=== PATIENT | female | born 1935 | race Caucasian/White ===

== ENCOUNTER 2018-12-16 12:18 | Emergency (ER) | payer BC ==
[2018-12-16] MEDS ORDERED: ACETAMINOPHEN 325 MG TABLET (FP) PO ONE (12:31)
[2018-12-16] MEDS ORDERED: ACETAMINOPHEN 325 MG TABLET (FP) ONE (12:41)
[2018-12-16 12:43] VITALS: BP 159/77; PULSE 78; TEMP 98.4; BMI 23.1
--- NOTE | 2018-12-16 13:43 | PDOC ---
History of Present Illness - General Chief Complaint: Injury Stated Complaint: fall Time Seen by Provider: 12/16/18 12:26 History Source: Patient Exam Limitations: No Limitations - History of Present Illness Initial Comments: 12/16/18 13:42 83 yo F h/o htn cad, dm, on plavix here s/p trp and fall. pt states she was walking and tripped on curb on sidewalk. fell foreward on outstretched arms, did hit her face. sustained abrasion to left eyebrown. no loc. no change to mental status since fall. no c/o wrist pain. was ambulating following. no h/ip pain. no neck or back pain. happened just 45 minutes prior to arrival. pt is here with her two children. 12/16/18 17:32 Past History - Past Medical History Allergies/Adverse Reactions: Allergies Allergy/AdvReac Type Severity Reaction Status Date / Time Penicillins Allergy Verified 12/16/18 12:21 Home Medications: Ambulatory Orders Carvedilol [Coreg -] 6.25 mg PO BID 02/11/15 Cholecalciferol (Vitamin D3) [Vitamin D3 -] 1,000 unit PO DAILY 02/11/15 Clopidogrel Bisulfate [Plavix -] 75 mg PO DAILY 02/11/15 Folic Acid 1 mg PO DAILY 02/11/15 Glipizide [Glipizide ER] 2.5 mg PO ACDIN 02/11/15 Losartan Potassium 100 mg PO DAILY 02/11/15 Pravastatin Sodium [Pravachol -] 40 mg PO HS 02/11/15 metFORMIN HCL [Metformin ER Osmotic] 1,000 mg PO BID 02/11/15 Cardiac Disorders: Yes COPD: No CHF: Yes Diabetes: Yes HTN: Yes - Surgical History Cardiac Surgery: Yes (STENT) Cholecystectomy: Yes Orthopedic Surgery: No - Immunization History Immunization Up to Date: Yes - Suicide/Smoking/Psychosocial Hx Smoking History: Never smoked Have you smoked in the past 12 months: No Information on smoking cessation initiated: No Hx Alcohol Use: No Drug/Substance Use Hx: No Review of Systems - Review of Systems Constitutional: No: Chills, Diaphoresis, Weight Stable HEENTM: No: Eye Pain Respiratory: No: Cough, Orthopnea Cardiac (ROS): No: Chest Pain, Edema Musculoskeletal: Yes: Joint Pain Integumentary: Yes: Other (abrasion) All Other Systems: Reviewed and Negative *Physical Exam - Vital Signs Last Vital Signs Temp Pulse Resp BP Pulse Ox 98.4 F 78 20 159/77 100 12/16/18 12:18 12/16/18 12:18 12/16/18 12:18 12/16/18 12:18 12/16/18 12:18 - Physical Exam Comments: 12/16/18 17:34 awake alert lungs clear bilatearlly head with laceration left eyebrow. no bony step off. linear. 2.5 cm. EOMI, mild eccymosis left periorbital area. no mildline c spine tenderness. no mildline t/l/s spine tenderenss. abd soft nt nd. heart rrr no mrg . ext nt from. wrist no snuffbox tenderness. bilat knee abrasions. fROM, nt. ankle and hip bilat nt from. GCS 15. Procedures - Laceration/Wound Repair Left Face Wound's Depth, Shape: superficial Irrigated w/ Saline: Yes Betadine Prep: No Anesthesia: 1% Lidocaine Suture Size/Type: 6:0 Number of Sutures: 3 Layer Closure: No ED Treatment Course - RADIOLOGY Radiology Studies Ordered: Category Date Time Status HEAD CT WITHOUT CONTRAST [CT] Stat CT Scan 12/16/18 12:27 Completed SHOULDER-LEFT [RAD] Stat Radiology 12/16/18 12:31 Completed - Medications Given in the ED: ED Medications Discontinued Medications Generic Name Dose Route Start Last Admin Trade Name Freq PRN Reason Stop Dose Admin Acetaminophen 650 mg 12/16/18 12:31 12/16/18 12:49 Tylenol - PO 12/16/18 12:32 650 mg ONCE ONE Administration Medical Decision Making - Medical Decision Making 12/16/18 14:30 83 yo s/p traip and fall. head trauma, c/o left shoulder pain. no loc no n/v no other complaints. physical exam noted for left eyebrow laceration, sutured with 3/x 6.0 suture, tolerated well. xray shoulder negative for fx. ct head unremarakble. d/w family regarding possiblity of dealyed bleeding due to plavix. warning signs given to pt and two children who are both RN's understand. dc home. *DC/Admit/Observation/Transfer Diagnosis at time of Disposition: Head trauma, Laceration, Shoulder contusion - Discharge Dispostion Disposition: HOME Condition at time of disposition: Improved Decision to Admit order: No - Referrals Referrals: Keyon Diaz MD [Staff Physician] - - Patient Instructions Printed Discharge Instructions: DI for Laceration Repair, DI for Closed Head Injury Additional Instructions: you xray of your shoulder is negative for any broken bones. you ct of your head is negative for any acute injury. however due to fact you are on Plavix, your chance of delayed bleeding or injury is possible. therfore if you suddenly develop worsening headache, confusion, weakness or any concerns you should return to emergency room immediately. keep wound clean and dry for 24 - 48 hours. then you may wash the cut with mild soap and water. you can apply bacitracin twice daily x 7 days. keep out of sun. return for redness, swelling drainage or any concerns for infection. sutures should be removed in 5 - 7 days with your primary doctor or you can come here. - Post Discharge Activity
== END 2018-12-16 14:47 | disposition home or self-care (01) ==
LOC: FER 12:18
PROC: 0HQ1XZZ Repair Face Skin, External Approach (ICD-10-PCS; principal; 2018-12-16)
DX: S09.90XA Unspecified injury of head, initial encounter (principal); S01.112A Laceration without foreign body of left eyelid and periocular area, initial encounter; W01.0XXA Fall on same level from slipping, tripping and stumbling without subsequent striking against object, initial encounter; Y93.89 Activity, other specified; Y92.89 Other specified places as the place of occurrence of the external cause; I10 Essential (primary) hypertension; E11.9 Type 2 diabetes mellitus without complications; Z95.5 Presence of coronary angioplasty implant and graft; I25.10 Atherosclerotic heart disease of native coronary artery without angina pectoris
CPT/HCPCS: 70450-TC; 73030-TC-LT-FY; 99282-25

== ENCOUNTER 2021-03-22 21:31 | Emergency (ER) | payer BC, OTHER ==
[2021-03-22 21:49] VITALS: BP 153/63; PULSE 78; TEMP 97.7; BMI 24.0
== END 2021-03-22 23:52 | disposition home or self-care (01) ==
LOC: FER 21:31
DX: M25.552 Pain in left hip (principal); S89.92XA Unspecified injury of left lower leg, initial encounter; W19.XXXA Unspecified fall, initial encounter
CPT/HCPCS: 70450-TC; 72125-TC; 73060-TC-LT-FY; 73523-TC-FY; 73562-TC-LT-FY; 73610-TC-LT-FY; 99284-25

== ENCOUNTER 2022-05-09 19:43 | Observation (INO) | payer BC ==
[2022-05-09 19:49] VITALS: BMI 24.0
[2022-05-09 21:05] LABS: EOS % 4.2 % (0-4.5); HEMATOCRIT 38.9 % (32.4-45.2); LYMPH % 25.9 % (8-40); MCH 30.9 pg (25.7-33.7); MCHC 33.4 g/dl (32.0-36.0); MEAN CELL VOLUME 92.4 fl (80-96); MEAN PLT VOLUME 9.3 fl (7.5-11.1); MONO % 8.8 % (3.8-10.2); NEUT % 60.1 % (42.8-82.8); PLATELET COUNT 191 10^3/uL (134-434); RBC 4.21 M/mm3 (3.60-5.2); RDW 14.1 % (11.6-15.6); WHITE BLOOD COUNT 5.3 K/mm3 (4.0-10.0)
[2022-05-09 21:10] LABS: INR 1.03 (0.83-1.09); PROTHROMBIN TIME (PATIENT) 11.8 SEC (9.7-13.0)
[2022-05-09 21:18] LABS: ALBUMIN 3.4 g/dl (3.4-5.0); CALCIUM 8.4 mg/dL (8.5-10.1)
[2022-05-09 21:20] LABS: BLOOD UREA NITROGEN 15.2 mg/dL (7-18)
[2022-05-09 21:21] LABS: CREATININE 0.7 mg/dL (0.55-1.3)
[2022-05-09 21:23] LABS: BILIRUBIN,TOTAL 0.4 mg/dL (0.2-1); TOT PROT 6.6 g/dl (6.4-8.2)
[2022-05-09] MEDS ORDERED: ALBUTEROL SO4 2.5/IPRATROPIUM 0.5 INH SOL 3 ML VIAL.NEB. NEB ONE (23:10)
[2022-05-09] MEDS ORDERED: INSULIN REGULAR HUMAN 100 UNITS/ML *VIAL IVPUSH ONE (23:10)
[2022-05-09] MEDS ORDERED: DEXAMETHASONE SOD PHOSPHATE 10 MG/1 ML VIAL IVPUSH ONE (23:10)
[2022-05-10] MEDS ORDERED: guaiFENesin 200 MG/10 ML 10 ML UNIT-DOSE CUPS ONE (00:15)
[2022-05-10] MEDS: guaiFENesin 200 MG/10 ML 10 ML UNIT-DOSE CUPS PO ONE ×2 (00:16→00:18)
[2022-05-10 07:29] LABS: HEMATOCRIT 36.8 % (32.4-45.2); HEMOGLOBIN 12.7 GM/dL (10.7-15.3); MCH 31.4 pg (25.7-33.7); MCHC 34.5 g/dl (32.0-36.0); MEAN CELL VOLUME 91.1 fl (80-96); MEAN PLT VOLUME 9.2 fl (7.5-11.1); PLATELET COUNT 179 10^3/uL (134-434); RBC 4.04 M/mm3 (3.60-5.2); RDW 14.1 % (11.6-15.6); WHITE BLOOD COUNT 5.5 K/mm3 (4.0-10.0)
[2022-05-10 07:43] LABS: CHOLESTEROL 115 mg/dL (50-200); TRIGLYCERIDES 63 mg/dL (0-150)
[2022-05-10 07:45] LABS: LDL CHOLESTEROL (ONLY SJRH) 52 mg/dL (5-100)
[2022-05-10 07:47] LABS: HDL CHOLESTEROL 56 mg/dL (40-60)
[2022-05-10 07:50] LABS: ALBUMIN 3.2 g/dl (3.4-5.0); CALCIUM 8.4 mg/dL (8.5-10.1); MAGNESIUM 1.9 mg/dL (1.8-2.4)
[2022-05-10 07:53] LABS: CREATININE 0.7 mg/dL (0.55-1.3)
[2022-05-10 07:54] LABS: BILIRUBIN,TOTAL 0.4 mg/dL (0.2-1); TOT PROT 6.3 g/dl (6.4-8.2)
[2022-05-10] MEDS ORDERED: LOSARTAN POTASSIUM 50 MG TABLET ONE (09:20)
[2022-05-10] MEDS ORDERED: ENOXAPARIN NA (PORCINE) 40 MG/0.4 ML DISP.SYRIN SQ ONE (09:20)
[2022-05-10] MEDS ORDERED: CARVEDILOL 12.5 MG TABLET (FP) ONE (09:20)
[2022-05-10] MEDS ORDERED: CLOPIDOGREL BISULFATE 75 MG TABLET (FP) ONE (09:20)
[2022-05-10] MEDS: LOSARTAN POTASSIUM 50 MG TABLET PO SCH (09:46)
[2022-05-10] MEDS: CLOPIDOGREL BISULFATE 75 MG TABLET (FP) PO SCH (09:46)
[2022-05-10] MEDS ORDERED: CARVEDILOL 6.25 MG TABLET (FP) PO SCH (10:00)
[2022-05-10] MEDS: ENOXAPARIN NA (PORCINE) 40 MG/0.4 ML DISP.SYRIN SQ SCH (10:25)
[2022-05-10 16:29] LABS: URINE APPEARANCE CLEAR; URINE BILIRUBIN NEGATIVE (NEGATIVE); URINE COLOR YELLOW; URINE GLUCOSE (UA) NEGATIVE (NEGATIVE); URINE KETONE 1+ (NEGATIVE); URINE LEUK ESTERASE NEGATIVE (NEGATIVE); URINE NITRITE NEGATIVE (NEGATIVE); URINE PROTEIN NEGATIVE (NEGATIVE); URINE UROBILINOGEN 0.2 mg/dL (0.2-1.0)
[2022-05-10] MEDS: ASPIRIN 81 MG CHEWABLE TABLETS PO SCH (18:59)
[2022-05-10] MEDS ORDERED: ASPIRIN COATED 81 MG TABLET.EC ONE (19:00)
[2022-05-10] MEDS ORDERED: ASPIRIN 81 MG CHEWABLE TABLETS ONE (19:01)
[2022-05-10] MEDS: ATORVASTATIN CA 10 MG TABLET (FP) PO SCH (22:10)
[2022-05-11] MEDS: LOSARTAN POTASSIUM 50 MG TABLET PO SCH ×2 (08:01→15:20)
[2022-05-11] MEDS ORDERED: REGADENOSON 0.4 MG/5 ML PRE-FILLED SYRINGE IVPUSH ONE ×2 (09:14→10:15)
[2022-05-11] MEDS: CLOPIDOGREL BISULFATE 75 MG TABLET (FP) PO SCH (16:45)
[2022-05-11] MEDS: ENOXAPARIN NA (PORCINE) 40 MG/0.4 ML DISP.SYRIN SQ SCH (16:45)
[2022-05-11] MEDS: ATORVASTATIN CA 10 MG TABLET (FP) PO SCH (21:51)
[2022-05-12] MEDS: ASPIRIN 81 MG CHEWABLE TABLETS PO SCH (08:04)
[2022-05-12 09:19] VITALS: BP 144/54; PULSE 73; RESP 18; TEMP 98.8
[2022-05-12] MEDS: LOSARTAN POTASSIUM 50 MG TABLET PO SCH (09:19)
[2022-05-12] MEDS: ENOXAPARIN NA (PORCINE) 40 MG/0.4 ML DISP.SYRIN SQ SCH (09:19)
[2022-05-12] MEDS: CLOPIDOGREL BISULFATE 75 MG TABLET (FP) PO SCH (09:19)
[2022-05-12 13:46] LABS: BASO % 0.6 % (0-2.0); EOS % 3.4 % (0-4.5); HEMATOCRIT 35.9 % (32.4-45.2); HEMOGLOBIN 12.2 GM/dL (10.7-15.3); LYMPH % 30.8 % (8-40); MCH 31.2 pg (25.7-33.7); MCHC 34.1 g/dl (32.0-36.0); MEAN CELL VOLUME 91.5 fl (80-96); MEAN PLT VOLUME 9.3 fl (7.5-11.1); MONO % 11.8 % (3.8-10.2); NEUT % 53.4 % (42.8-82.8); PLATELET COUNT 172 10^3/uL (134-434); RBC 3.92 M/mm3 (3.60-5.2); RDW 14.2 % (11.6-15.6); WHITE BLOOD COUNT 5.4 K/mm3 (4.0-10.0)
[2022-05-12 14:02] LABS: CALCIUM 8.4 mg/dL (8.5-10.1)
[2022-05-12 14:03] LABS: BLOOD UREA NITROGEN 13.6 mg/dL (7-18)
[2022-05-12 14:06] LABS: CREATININE 0.8 mg/dL (0.55-1.3)
[2022-05-12 14:07] LABS: TOT PROT 5.8 g/dl (6.4-8.2)
[2022-05-12 14:08] LABS: BILIRUBIN,TOTAL 0.4 mg/dL (0.2-1)
== END 2022-05-12 14:50 | disposition home or self-care (01) ==
LOC: JER 19:43 → JERBED 23:57 → UNDOADMOB 23:57 → INTOOBSV 05-10 02:55 → OBSVTOIN 05-10 02:55 → JERBED 05-10 14:40 → J4W 05-10 20:34
PROVIDERS: ADMIT Internal Medicine
PROC: 3E023GC Introduction of Other Therapeutic Substance into Muscle, Percutaneous Approach (ICD-10-PCS; principal; 2022-05-10)
PROC: 3E033GC Introduction of Other Therapeutic Substance into Peripheral Vein, Percutaneous Approach (ICD-10-PCS; 2022-05-10)
DX: R09.89 Other specified symptoms and signs involving the circulatory and respiratory systems (principal); R77.8 Other specified abnormalities of plasma proteins; I25.10 Atherosclerotic heart disease of native coronary artery without angina pectoris; E78.5 Hyperlipidemia, unspecified; E11.9 Type 2 diabetes mellitus without complications; Z88.0 Allergy status to penicillin; Z91.011 Allergy to milk products; I11.9 Hypertensive heart disease without heart failure
CPT/HCPCS: 0241U-QW; 36415; 70490-TC; 71045-TC-FY; 74230-TC-FY; 78452-TC; 80053; 80061; 81003; 82550; 82962; 83735; 84100; 84439; 84443; 84484; 85025; 85027; 85610; 85730; 92611-GN; 93005; 93010; 93017; 93306-TC; 96372; 96374; 99285-25; A9502; G0378; J2785

== ENCOUNTER 2022-10-20 10:51 | Inpatient (IN) | payer BC ==
[2022-10-20] MEDS ORDERED: SODIUM CHLORIDE 1,000 ML IV STA (12:02)
[2022-10-20] MEDS ORDERED: morphine CARPU-JECT 2 MG/1 ML DISP.SYRIN IVPUSH ONE (12:02)
[2022-10-20 13:02] LABS: BASO % 0.5 % (0-2.0); EOS % 0.8 % (0-4.5); HEMATOCRIT 39.6 % (32.4-45.2); HEMOGLOBIN 13.5 GM/dL (10.7-15.3); LYMPH % 13.9 % (8-40); MCH 30.7 pg (25.7-33.7); MCHC 34.1 g/dl (32.0-36.0); MEAN PLT VOLUME 9.8 fl (7.5-11.1); MONO % 5.2 % (3.8-10.2); NEUT % 79.6 % (42.8-82.8); PLATELET COUNT 183 10^3/uL (134-434); RDW 14.2 % (11.6-15.6)
[2022-10-20 13:13] LABS: INR 1.07 (0.83-1.09); PROTHROMBIN TIME (PATIENT) 12.4 SEC (9.7-13.0)
[2022-10-20 13:17] LABS: POTASSIUM 4.6 mmol/L (3.5-5.1)
[2022-10-20 13:21] LABS: ALBUMIN 3.6 g/dl (3.4-5.0); BLOOD UREA NITROGEN 14.8 mg/dL (7-18); CALCIUM 8.9 mg/dL (8.5-10.1)
[2022-10-20 13:24] LABS: CREATININE 0.8 mg/dL (0.55-1.3)
[2022-10-20 13:26] LABS: BILIRUBIN,TOTAL 0.5 mg/dL (0.2-1)
[2022-10-20 13:36] LABS: LACTIC ACID 3.1 mmol/L (0.4-2.0)
[2022-10-20] MEDS ORDERED: SODIUM CHLORIDE 1,000 ML IV SCH (15:15)
[2022-10-20] MEDS ORDERED: ACETAMINOPHEN 1000 MG/100 ML BAG IVPB ONE (17:23)
[2022-10-20] MEDS ORDERED: ACETAMINOPHEN INJECTION 100 ML IVPB ONE (17:30)
[2022-10-20] MEDS ORDERED: TRIMETHOBENZAMIDE HCL 200MG/2ML INJ IM PRN (18:14)
[2022-10-20] MEDS ORDERED: ACETAMINOPHEN 1000 MG/100 ML BAG IVPB PRN (18:15)
[2022-10-20] MEDS ORDERED: hydrALAZINE HCL 20 MG/ML VIAL IVPUSH PRN ×2 (18:29→23:31)
[2022-10-20] MEDS ORDERED: PATIENT'S OWN MEDICATION (NON-FORMULARY) (Losartan Potassium [Losartan Potassium] 100 MG T PO SCH (18:30)
[2022-10-20 19:04] VITALS: BMI 22.6
[2022-10-20] MEDS ORDERED: BUPIVACAINE HCL/PF 0.25% (2.5MG/ML) 10 ML VIAL ONE (20:19)
[2022-10-20] MEDS ORDERED: PROPOFOL 20 ML ONE (20:22)
[2022-10-20] MEDS ORDERED: ROCURONIUM BROMIDE 50 MG/5 ML SYRINGE ONE (20:22)
[2022-10-20] MEDS ORDERED: LIDOCAINE HCL 2% 100 MG/5 ML DISP.SYRIN ONE (20:23)
[2022-10-20] MEDS ORDERED: cefOXitin SODIUM 1 GM VIAL (RESTRICTED TO ID) IVPB ONE (20:55)
[2022-10-20] MEDS ORDERED: CEFOXITIN SODIUM 1 GM IVPB ONE (20:57)
[2022-10-20] MEDS ORDERED: DEXAMETHASONE SOD PHOSPHATE 4 MG/1 ML VIAL ONE (21:02)
[2022-10-20] MEDS ORDERED: ONDANSETRON 4 MG/2 ML VIAL ONE ×2 (21:02→23:13)
[2022-10-20] MEDS ORDERED: SUGAMMADEX SODIUM 200 MG/2 ML VIAL ONE (21:07)
[2022-10-20] MEDS ORDERED: BUPIVACAINE HCL/PF 0.25% (2.5MG/ML) 10 ML VIAL IJ ONE (21:10)
[2022-10-20] MEDS ORDERED: ATORVASTATIN CA 10 MG TABLET (FP) PO SCH (22:00)
[2022-10-20] MEDS ORDERED: CARVEDILOL 6.25 MG TABLET (FP) PO SCH (22:00)
[2022-10-20] MEDS ORDERED: SEVOFLURANE 250 ML BTL ONE (22:38)
[2022-10-20] MEDS ORDERED: oxyCODONE HCL 5 MG TABLET PO PRN ×2 (23:05→23:31)
[2022-10-20] MEDS ORDERED: ACETAMINOPHEN 325 MG TABLET (FP) PO PRN (23:05)
[2022-10-20] MEDS ORDERED: ONDANSETRON 4 MG/2 ML VIAL IVPUSH PRN ×2 (23:05→23:31)
[2022-10-20] MEDS ORDERED: LACTATED RINGERS SOLUTION 1,000 ML IV SCH (23:15)
[2022-10-20] MEDS ORDERED: KETOROLAC TROMETHAMINE 15 MG/ML VIAL IM PRN (23:18)
[2022-10-20] MEDS: ACETAMINOPHEN 1000 MG/100 ML BAG IVPB SCH (23:26)
[2022-10-20] MEDS: PROMETHAZINE HCL 25 MG/1 ML VIAL IVPB ONE ×2 (23:41→23:45)
[2022-10-21] MEDS: LACTATED RINGERS SOLUTION 1,000 ML IV SCH ×3 (00:30→10:12)
[2022-10-21] MEDS: ACETAMINOPHEN 1000 MG/100 ML BAG IVPB SCH ×4 (05:59→23:53)
[2022-10-21] MEDS ORDERED: ACETAMINOPHEN 1000 MG/100 ML BAG IVPB SCH (06:00)
[2022-10-21 07:47] LABS: HEMATOCRIT 33.7 % (32.4-45.2); LYMPH % 7.8 % (8-40); MCH 32.1 pg (25.7-33.7); MCHC 35.6 g/dl (32.0-36.0); MEAN CELL VOLUME 90.3 fl (80-96); MEAN PLT VOLUME 10.3 fl (7.5-11.1); MONO % 5.9 % (3.8-10.2); NEUT % 86.3 % (42.8-82.8); PLATELET COUNT 150 10^3/uL (134-434); RBC 3.74 M/mm3 (3.60-5.2); RDW 13.9 % (11.6-15.6); WHITE BLOOD COUNT 9.7 K/mm3 (4.0-10.0)
[2022-10-21 07:54] LABS: POTASSIUM 4.3 mmol/L (3.5-5.1)
[2022-10-21 07:56] LABS: BLOOD UREA NITROGEN 11.6 mg/dL (7-18); CALCIUM 8.3 mg/dL (8.5-10.1); MAGNESIUM 1.5 mg/dL (1.8-2.4)
[2022-10-21 07:59] LABS: CREATININE 0.7 mg/dL (0.55-1.3); PHOSPHOROUS 4.2 mg/dL (2.5-4.9)
[2022-10-21 08:00] LABS: BILIRUBIN,TOTAL 0.4 mg/dL (0.2-1); TOT PROT 5.4 g/dl (6.4-8.2)
[2022-10-21 08:25] LABS: ALBUMIN 2.8 g/dl (3.4-5.0)
[2022-10-21] MEDS: MAGNESIUM OXIDE 400 MG TABLET (FP) PO SCH ×2 (09:33→21:52)
[2022-10-21] MEDS: FAMOTIDINE 20 MG TABLET PO SCH (21:52)
[2022-10-21] MEDS ORDERED: FAMOTIDINE 20 MG TABLET PO SCH (22:00)
[2022-10-21] MEDS ORDERED: FAMOTIDINE 10 MG TABLET PO SCH (22:00)
[2022-10-21] MEDS ORDERED: ATORVASTATIN CA 10 MG TABLET (FP) PO SCH (22:00)
[2022-10-22] MEDS ORDERED: ACETAMINOPHEN 500 MG TABLET (FP) PO PRN ×2 (09:56→10:01)
[2022-10-22] MEDS ORDERED: CHOLECALCIFEROL (VIT D3) 1,000 UNIT (25 MCG) TABLET PO SCH (10:00)
[2022-10-22] MEDS ORDERED: FOLIC ACID 1 MG TABLET (FP) PO SCH (10:00)
[2022-10-22] MEDS ORDERED: CLOPIDOGREL BISULFATE 75 MG TABLET (FP) PO SCH (10:00)
[2022-10-22] MEDS ORDERED: ACETAMINOPHEN 500 MG TABLET (FP) PO ONE (10:09)
[2022-10-22] MEDS: MAGNESIUM OXIDE 400 MG TABLET (FP) PO SCH (10:21)
[2022-10-22] MEDS: FAMOTIDINE 20 MG TABLET PO SCH (10:23)
[2022-10-22 15:04] LABS: PH,URINE 7.5 (5.0-8.0); URINE APPEARANCE CLEAR; URINE BILIRUBIN NEGATIVE (NEGATIVE); URINE COLOR YELLOW; URINE GLUCOSE (UA) NEGATIVE (NEGATIVE); URINE KETONE NEGATIVE (NEGATIVE); URINE LEUK ESTERASE NEGATIVE (NEGATIVE); URINE NITRITE NEGATIVE (NEGATIVE); URINE PROTEIN NEGATIVE (NEGATIVE); URINE UROBILINOGEN 0.2 mg/dL (0.2-1.0)
[2022-10-22 16:33] VITALS: BP 151/58; PULSE 67; RESP 18; TEMP 97.9
== END 2022-10-22 17:52 | disposition home or self-care (01) | DRG 352 ==
LOC: JER 10:51 → JERBED 15:08 → J8W 18:18
PROVIDERS: ADMIT Internal Medicine; ATTEND Nurse Practitioner Acute Care
PROC: 0YU74JZ Supplement Right Femoral Region with Synthetic Substitute, Percutaneous Endoscopic Approach (ICD-10-PCS; principal; 2022-10-20 20:00)
DX: K41.30 Unilateral femoral hernia, with obstruction, without gangrene, not specified as recurrent (principal); I10 Essential (primary) hypertension; E78.5 Hyperlipidemia, unspecified; I25.10 Atherosclerotic heart disease of native coronary artery without angina pectoris; Z95.5 Presence of coronary angioplasty implant and graft; E11.9 Type 2 diabetes mellitus without complications
CPT/HCPCS: 36415; 74177-TC; 80053; 81003; 82962; 83605; 83735; 84100; 85025; 85610; 86850; 86900; 86901; 93005; 93010; 94760; 97116-GP; 97161-GP; 99285-25; C1781; C9803-CS; Q9967; U0003; U0005

== ENCOUNTER 2023-05-19 13:22 | Inpatient (IN) | payer BC ==
[2023-05-19] MEDS ORDERED: ACETAMINOPHEN 1000 MG/100 ML BAG IVPB ONE (14:33)
[2023-05-19] MEDS ORDERED: ACETAMINOPHEN INJECTION 100 ML IVPB ONE (15:05)
[2023-05-19 15:41] LABS: BASO % 0.3 % (0-2.0); EOS % 1.1 % (0-4.5); HEMOGLOBIN 12.5 GM/dL (10.7-15.3); LYMPH % 11.8 % (8-40); MCH 30.7 pg (25.7-33.7); MCHC 32.9 g/dl (32.0-36.0); MEAN CELL VOLUME 93.4 fl (80-96); MEAN PLT VOLUME 9.7 fl (7.5-11.1); MONO % 5.1 % (3.8-10.2); NEUT % 81.7 % (42.8-82.8); PLATELET COUNT 179 10^3/uL (134-434); RBC 4.07 M/mm3 (3.60-5.2); RDW 14.4 % (11.6-15.6); WHITE BLOOD COUNT 8.4 K/mm3 (4.0-10.0)
[2023-05-19 15:45] LABS: EPI CELLS 13 /uL (0-25.1); HYALINE CASTS 0 /uL (0-3.1); PH,URINE 7.5 (5.0-8.0); URINE APPEARANCE CLEAR; URINE BACTERIA 235 /uL (0-1359); URINE BILIRUBIN NEGATIVE (NEGATIVE); URINE COLOR YELLOW; URINE GLUCOSE (UA) NEGATIVE (NEGATIVE); URINE KETONE NEGATIVE (NEGATIVE); URINE LEUK ESTERASE NEGATIVE (NEGATIVE); URINE NITRITE NEGATIVE (NEGATIVE); URINE PROTEIN TRACE (NEGATIVE); URINE RBC 41 /uL (0-23.9); URINE UROBILINOGEN 0.2 mg/dL (0.2-1.0); URINE WBC 1 /uL (0-25.8)
[2023-05-19 16:01] LABS: INR 1.06 (0.83-1.09); PROTHROMBIN TIME (PATIENT) 12.3 SEC (9.7-13.0)
[2023-05-19 16:02] LABS: ALBUMIN 3.1 g/dl (3.4-5.0); CALCIUM 8.8 mg/dL (8.5-10.1)
[2023-05-19 16:03] LABS: BLOOD UREA NITROGEN 18.5 mg/dL (7-18)
[2023-05-19 16:05] LABS: CREATININE 0.7 mg/dL (0.55-1.3)
[2023-05-19 16:07] LABS: BILIRUBIN,TOTAL 0.4 mg/dL (0.2-1); TOT PROT 6.5 g/dl (6.4-8.2)
[2023-05-19 16:26] LABS: LACTIC ACID 2.8 mmol/L (0.4-2.0)
[2023-05-19] MEDS ORDERED: SODIUM CHLORIDE 0.9% 1000 ML INFUS.BAG IV ONE (22:04)
[2023-05-20 04:33] VITALS: BMI 22.8
[2023-05-20] MEDS: INSULIN SLIDING SCALE (NOVOLOG) 1 VIAL SQ SCH ×4 (06:18→21:13)
[2023-05-20] MEDS ORDERED: FAMOTIDINE 20 MG TABLET PO SCH (10:00)
[2023-05-20] MEDS: ATORVASTATIN CA 10 MG TABLET (FP) PO SCH (10:03)
[2023-05-20] MEDS: CLOPIDOGREL BISULFATE 75 MG TABLET (FP) PO SCH (10:04)
[2023-05-20] MEDS: CARVEDILOL 6.25 MG TABLET (FP) PO SCH ×2 (10:04→21:12)
[2023-05-20] MEDS: FOLIC ACID 1 MG TABLET (FP) PO SCH (10:04)
[2023-05-20] MEDS: LOSARTAN POTASSIUM 50 MG TABLET PO SCH (10:04)
[2023-05-20] MEDS: ENOXAPARIN NA (PORCINE) 40 MG/0.4 ML DISP.SYRIN SQ SCH (10:04)
[2023-05-20] MEDS: CHOLECALCIFEROL (VIT D3) 1,000 UNIT (25 MCG) TABLET PO SCH (10:05)
[2023-05-20 10:20] LABS: HEMATOCRIT 34.6 % (32.4-45.2); HEMOGLOBIN 11.5 GM/dL (10.7-15.3); MCH 30.7 pg (25.7-33.7); MCHC 33.2 g/dl (32.0-36.0); MEAN CELL VOLUME 92.4 fl (80-96); MEAN PLT VOLUME 9.8 fl (7.5-11.1); PLATELET COUNT 155 10^3/uL (134-434); RBC 3.75 M/mm3 (3.60-5.2); RDW 14.6 % (11.6-15.6); WHITE BLOOD COUNT 4.4 K/mm3 (4.0-10.0)
[2023-05-20 10:33] LABS: POTASSIUM 3.8 mmol/L (3.5-5.1)
[2023-05-20 10:48] LABS: ALBUMIN 2.8 g/dl (3.4-5.0); BLOOD UREA NITROGEN 13.1 mg/dL (7-18); CREATININE 0.8 mg/dL (0.55-1.3)
[2023-05-20 10:50] LABS: BILIRUBIN,TOTAL 0.5 mg/dL (0.2-1); TOT PROT 5.8 g/dl (6.4-8.2)
[2023-05-20 14:40] VITALS: RESP 18
[2023-05-21] MEDS: INSULIN SLIDING SCALE (NOVOLOG) 1 VIAL SQ SCH ×2 (06:23→12:15)
[2023-05-21 06:52] VITALS: TEMP 97.5
[2023-05-21 06:56] VITALS: BP 151/64; PULSE 64
[2023-05-21 09:39] LABS: BASO % 0.6 % (0-2.0); EOS % 3.8 % (0-4.5); HEMATOCRIT 36.1 % (32.4-45.2); HEMOGLOBIN 12.1 GM/dL (10.7-15.3); LYMPH % 27.7 % (8-40); MCH 30.7 pg (25.7-33.7); MCHC 33.6 g/dl (32.0-36.0); MEAN CELL VOLUME 91.3 fl (80-96); MEAN PLT VOLUME 9.6 fl (7.5-11.1); MONO % 9.7 % (3.8-10.2); NEUT % 58.2 % (42.8-82.8); PLATELET COUNT 170 10^3/uL (134-434); RBC 3.95 M/mm3 (3.60-5.2); RDW 14.5 % (11.6-15.6); WHITE BLOOD COUNT 4.4 K/mm3 (4.0-10.0)
[2023-05-21 10:07] LABS: POTASSIUM 3.6 mmol/L (3.5-5.1)
[2023-05-21 10:11] LABS: CALCIUM 8.6 mg/dL (8.5-10.1)
[2023-05-21] MEDS: FOLIC ACID 1 MG TABLET (FP) PO SCH (10:11)
[2023-05-21] MEDS: CARVEDILOL 6.25 MG TABLET (FP) PO SCH (10:11)
[2023-05-21] MEDS: ATORVASTATIN CA 10 MG TABLET (FP) PO SCH (10:11)
[2023-05-21] MEDS: CLOPIDOGREL BISULFATE 75 MG TABLET (FP) PO SCH (10:11)
[2023-05-21 10:12] LABS: BLOOD UREA NITROGEN 11.3 mg/dL (7-18)
[2023-05-21] MEDS: ENOXAPARIN NA (PORCINE) 40 MG/0.4 ML DISP.SYRIN SQ SCH (10:12)
[2023-05-21] MEDS: LOSARTAN POTASSIUM 50 MG TABLET PO SCH (10:12)
[2023-05-21] MEDS: CHOLECALCIFEROL (VIT D3) 1,000 UNIT (25 MCG) TABLET PO SCH (10:12)
[2023-05-21 10:15] LABS: CREATININE 0.8 mg/dL (0.55-1.3)
[2023-05-21 10:16] LABS: TOT PROT 6.1 g/dl (6.4-8.2)
[2023-05-21 10:17] LABS: BILIRUBIN,TOTAL 0.4 mg/dL (0.2-1)
== END 2023-05-21 14:30 | disposition home or self-care (01) | DRG 392 ==
LOC: JER 13:22 → JERBED 20:20 → J5S 05-20 01:32
PROVIDERS: ADMIT Internal Medicine; ATTEND Internal Medicine
DX: K57.32 Diverticulitis of large intestine without perforation or abscess without bleeding (principal); E87.20 Acidosis, unspecified; E11.9 Type 2 diabetes mellitus without complications; I10 Essential (primary) hypertension; K21.9 Gastro-esophageal reflux disease without esophagitis; E78.5 Hyperlipidemia, unspecified; I25.10 Atherosclerotic heart disease of native coronary artery without angina pectoris; Z95.5 Presence of coronary angioplasty implant and graft
CPT/HCPCS: 0241U-QW; 36415; 71045-TC-FY; 74177-TC; 80053; 81003; 82962; 83605; 83690; 84484; 85025; 85027; 85610; 85730; 86140; 86850; 86900; 86901; 87086; 93005; 93010; 97116-GP; 97161-GP; 99285-25; Q9967

== ENCOUNTER 2023-06-09 17:15 | Inpatient (IN) | payer BC ==
[2023-06-09 17:39] VITALS: BMI 24.5
[2023-06-09] MEDS ORDERED: KETOROLAC TROMETHAMINE 30 MG/1 ML VIAL IM ONE (18:42)
[2023-06-09] MEDS ORDERED: morphine CARPU-JECT 4 MG/1 ML DISP.SYRIN IVPUSH ONE (18:47)
[2023-06-09] MEDS ORDERED: KETOROLAC TROMETHAMINE 30 MG/1 ML VIAL ONE (18:49)
[2023-06-09] MEDS ORDERED: morphine SULFATE 4 MG/ML VIAL ONE (19:21)
[2023-06-09 19:23] LABS: BASO % 0.6 % (0-2.0); EOS % 4.3 % (0-4.5); HEMATOCRIT 42.5 % (32.4-45.2); HEMOGLOBIN 14.3 GM/dL (10.7-15.3); LYMPH % 22.2 % (8-40); MCH 30.5 pg (25.7-33.7); MCHC 33.7 g/dl (32.0-36.0); MEAN CELL VOLUME 90.6 fl (80-96); MONO % 6.8 % (3.8-10.2); NEUT % 66.1 % (42.8-82.8); PLATELET COUNT 214 10^3/uL (134-434); RBC 4.69 M/mm3 (3.60-5.2); WHITE BLOOD COUNT 6.8 K/mm3 (4.0-10.0)
[2023-06-09 19:51] LABS: ACTIVATED PTT 33.7 SECONDS (25.2-36.5); INR 1.06 (0.83-1.09); PROTHROMBIN TIME (PATIENT) 12.3 SEC (9.7-13.0)
[2023-06-09 20:05] LABS: POTASSIUM 3.7 mmol/L (3.5-5.1)
[2023-06-09 20:08] LABS: BLOOD UREA NITROGEN 13.1 mg/dL (7-18); CALCIUM 10.2 mg/dL (8.5-10.1)
[2023-06-09 20:09] LABS: ALBUMIN 3.6 g/dl (3.4-5.0)
[2023-06-09 20:11] LABS: CREATININE 0.8 mg/dL (0.55-1.3)
[2023-06-09 20:13] LABS: BILIRUBIN,TOTAL 0.8 mg/dL (0.2-1)
[2023-06-09] MEDS ORDERED: SODIUM CHLORIDE 0.9% 500 ML INFUS.BAG IV ONE (21:30)
[2023-06-09 23:25] LABS: PH,URINE 8.5 (5.0-8.0); URINE APPEARANCE CLEAR; URINE BILIRUBIN NEGATIVE (NEGATIVE); URINE COLOR YELLOW; URINE GLUCOSE (UA) TRACE (NEGATIVE); URINE KETONE 1+ (NEGATIVE); URINE LEUK ESTERASE NEGATIVE (NEGATIVE); URINE NITRITE NEGATIVE (NEGATIVE); URINE PROTEIN NEGATIVE (NEGATIVE); URINE UROBILINOGEN 0.2 mg/dL (0.2-1.0)
[2023-06-10] MEDS: CARVEDILOL 6.25 MG TABLET (FP) PO SCH ×3 (01:41→21:23)
[2023-06-10] MEDS ORDERED: LACTATED RINGERS SOLUTION 1,000 ML/1,000 ML INFUS.BAG IV SCH (01:45)
[2023-06-10] MEDS: LACTATED RINGERS SOLUTION 1,000 ML/1,000 ML INFUS.BAG IV SCH ×2 (03:11→13:04)
[2023-06-10] MEDS: INSULIN SLIDING SCALE (NOVOLOG) 1 VIAL SQ SCH ×4 (06:05→21:21)
[2023-06-10] MEDS: MINERAL OIL ENEMA 133 ML ENEMA RC SCH (06:07)
[2023-06-10 09:25] LABS: HEMOGLOBIN 12.6 GM/dL (10.7-15.3); MCH 30.5 pg (25.7-33.7); MCHC 33.1 g/dl (32.0-36.0); MEAN PLT VOLUME 10.2 fl (7.5-11.1); PLATELET COUNT 186 10^3/uL (134-434); RBC 4.13 M/mm3 (3.60-5.2); RDW 14.1 % (11.6-15.6); WHITE BLOOD COUNT 5.8 K/mm3 (4.0-10.0)
[2023-06-10] MEDS: FAMOTIDINE 20 MG TABLET PO SCH ×2 (09:26→21:22)
[2023-06-10] MEDS: CHOLECALCIFEROL (VIT D3) 1,000 UNIT (25 MCG) TABLET PO SCH (09:26)
[2023-06-10] MEDS: LOSARTAN POTASSIUM 50 MG TABLET PO SCH (09:26)
[2023-06-10] MEDS: CLOPIDOGREL BISULFATE 75 MG TABLET (FP) PO SCH (09:26)
[2023-06-10] MEDS: FOLIC ACID 1 MG TABLET (FP) PO SCH (09:26)
[2023-06-10 11:27] LABS: POTASSIUM 3.5 mmol/L (3.5-5.1)
[2023-06-10 12:04] LABS: BLOOD UREA NITROGEN 10.3 mg/dL (7-18)
[2023-06-10 12:05] LABS: MAGNESIUM 1.6 mg/dL (1.8-2.4)
[2023-06-10] MEDS ORDERED: MAGNESIUM OXIDE 400 MG TABLET (FP) PO ONE ×2 (12:06→13:30)
[2023-06-10 12:07] LABS: CREATININE 0.6 mg/dL (0.55-1.3); PHOSPHOROUS 3.1 mg/dL (2.5-4.9)
[2023-06-10 12:08] LABS: BILIRUBIN,TOTAL 0.6 mg/dL (0.2-1); TOT PROT 5.9 g/dl (6.4-8.2)
[2023-06-10 12:11] LABS: CALCIUM 8.3 mg/dL (8.5-10.1)
[2023-06-10] MEDS: HEPARIN NA (PORCINE) 5,000 UNITS/ML 1ML VIAL SQ SCH ×2 (13:32→21:23)
[2023-06-10] MEDS: ATORVASTATIN CA 10 MG TABLET (FP) PO SCH (21:22)
[2023-06-10] MEDS: SENNOSIDES 8.6MG TABLET (FP) PO SCH (21:23)
[2023-06-11] MEDS: INSULIN SLIDING SCALE (NOVOLOG) 1 VIAL SQ SCH ×4 (06:14→21:02)
[2023-06-11] MEDS: HEPARIN NA (PORCINE) 5,000 UNITS/ML 1ML VIAL SQ SCH ×3 (06:20→21:03)
[2023-06-11] MEDS: FOLIC ACID 1 MG TABLET (FP) PO SCH (09:40)
[2023-06-11] MEDS: CHOLECALCIFEROL (VIT D3) 1,000 UNIT (25 MCG) TABLET PO SCH (09:40)
[2023-06-11] MEDS: POLYETHYLENE GLYCOL (HEALTHYLAX) 3350 17 GM PACKET PO SCH ×2 (09:41→21:03)
[2023-06-11] MEDS: CLOPIDOGREL BISULFATE 75 MG TABLET (FP) PO SCH (09:41)
[2023-06-11] MEDS: CARVEDILOL 6.25 MG TABLET (FP) PO SCH ×2 (09:41→21:03)
[2023-06-11] MEDS: FAMOTIDINE 20 MG TABLET PO SCH ×2 (09:41→21:03)
[2023-06-11] MEDS: LOSARTAN POTASSIUM 50 MG TABLET PO SCH (09:41)
[2023-06-11] MEDS: LACTATED RINGERS SOLUTION 1,000 ML/1,000 ML INFUS.BAG IV SCH (09:43)
[2023-06-11] MEDS: MINERAL OIL ENEMA 133 ML ENEMA RC SCH (09:45)
[2023-06-11 10:02] VITALS: RESP 18
[2023-06-11] MEDS: ATORVASTATIN CA 10 MG TABLET (FP) PO SCH (21:03)
[2023-06-11] MEDS: SENNOSIDES 8.6MG TABLET (FP) PO SCH (21:03)
[2023-06-12] MEDS: INSULIN SLIDING SCALE (NOVOLOG) 1 VIAL SQ SCH ×2 (06:39→11:08)
[2023-06-12] MEDS: HEPARIN NA (PORCINE) 5,000 UNITS/ML 1ML VIAL SQ SCH (06:40)
[2023-06-12 08:52] LABS: HEMATOCRIT 39.3 % (32.4-45.2); HEMOGLOBIN 13.1 GM/dL (10.7-15.3); MCH 30.5 pg (25.7-33.7); MCHC 33.3 g/dl (32.0-36.0); MEAN CELL VOLUME 91.4 fl (80-96); MEAN PLT VOLUME 9.8 fl (7.5-11.1); PLATELET COUNT 162 10^3/uL (134-434); WHITE BLOOD COUNT 5.3 K/mm3 (4.0-10.0)
[2023-06-12 09:25] LABS: BLOOD UREA NITROGEN 9.8 mg/dL (7-18); CALCIUM 9.3 mg/dL (8.5-10.1); CREATININE 0.7 mg/dL (0.55-1.3); MAGNESIUM 1.7 mg/dL (1.8-2.4); PHOSPHOROUS 3.4 mg/dL (2.5-4.9); POTASSIUM 3.6 mmol/L (3.5-5.1)
[2023-06-12] MEDS: FOLIC ACID 1 MG TABLET (FP) PO SCH (10:32)
[2023-06-12] MEDS: CHOLECALCIFEROL (VIT D3) 1,000 UNIT (25 MCG) TABLET PO SCH (10:32)
[2023-06-12] MEDS: FAMOTIDINE 20 MG TABLET PO SCH (10:32)
[2023-06-12] MEDS: CLOPIDOGREL BISULFATE 75 MG TABLET (FP) PO SCH (10:32)
[2023-06-12] MEDS: POLYETHYLENE GLYCOL (HEALTHYLAX) 3350 17 GM PACKET PO SCH (10:32)
[2023-06-12] MEDS: LOSARTAN POTASSIUM 50 MG TABLET PO SCH (10:32)
[2023-06-12] MEDS: CARVEDILOL 6.25 MG TABLET (FP) PO SCH (10:32)
[2023-06-12 11:47] VITALS: PULSE 64
[2023-06-12 13:10] VITALS: BP 148/68; TEMP 97.8
== END 2023-06-12 13:15 | disposition home or self-care (01) | DRG 390 ==
LOC: JER 17:15 → JERBED 22:25 → J5S 06-10 03:47
PROVIDERS: ADMIT Internal Medicine; ATTEND Internal Medicine
DX: K56.600 Partial intestinal obstruction, unspecified as to cause (principal); K59.00 Constipation, unspecified; I10 Essential (primary) hypertension; E78.5 Hyperlipidemia, unspecified; K57.90 Diverticulosis of intestine, part unspecified, without perforation or abscess without bleeding; E11.9 Type 2 diabetes mellitus without complications; I25.10 Atherosclerotic heart disease of native coronary artery without angina pectoris; Z95.5 Presence of coronary angioplasty implant and graft; E88.810 Metabolic syndrome
CPT/HCPCS: 36415; 71045-TC-FY; 74018-TC-FY; 74177-TC; 80048; 80053; 81003; 82962; 83735; 84100; 85025; 85027; 85610; 85730; 86850; 86900; 86901; 87086; 93005; 93010; 97116-GP; 99285-25; J1644; Q9967

== ENCOUNTER 2024-04-21 20:17 | Day surgery (SDC) | payer BC ==
[2024-04-21] MEDS ORDERED: ONDANSETRON 4 MG/2 ML VIAL ONE (21:46)
[2024-04-21] MEDS: SODIUM CHLORIDE 500 ML IV STA (22:01)
[2024-04-21] MEDS: ONDANSETRON 4 MG/2 ML VIAL IVPUSH ONE (22:01)
[2024-04-21 22:12] LABS: BASO % 0.6 % (0-2.0); EOS % 2.4 % (0-4.5); HEMOGLOBIN 12.4 GM/dL (10.7-15.3); LYMPH % 23.2 % (8-40); MCH 30.5 pg (25.7-33.7); MCHC 33.4 g/dl (32.0-36.0); MEAN CELL VOLUME 91.1 fl (80-96); MEAN PLT VOLUME 9.6 fl (7.5-11.1); NEUT % 63.8 % (42.8-82.8); PLATELET COUNT 151 10^3/uL (134-434); RBC 4.06 M/mm3 (3.60-5.2); RDW 14.1 % (11.6-15.6); WHITE BLOOD COUNT 6.9 K/mm3 (4.0-10.0)
[2024-04-21] MEDS: HYDROmorphone HCl 2 MG/ML VIAL IVPUSH ONE (22:15)
[2024-04-21 22:29] LABS: POTASSIUM 3.9 mmol/L (3.5-5.1)
[2024-04-21 22:30] LABS: CALCIUM 8.4 mg/dL (8.5-10.1)
[2024-04-21 22:31] LABS: ALBUMIN 3.5 g/dl (3.4-5.0); BLOOD UREA NITROGEN 12.9 mg/dL (7-18)
[2024-04-21 22:34] LABS: CREATININE 0.7 mg/dL (0.55-1.3)
[2024-04-21 22:36] LABS: BILIRUBIN,TOTAL 0.4 mg/dL (0.2-1); TOT PROT 6.5 g/dl (6.4-8.2)
[2024-04-21 22:44] LABS: LACTIC ACID 4.2 mmol/L (0.4-2.0)
[2024-04-21 23:31] LABS: URINE APPEARANCE CLEAR; URINE BILIRUBIN NEGATIVE (NEGATIVE); URINE COLOR YELLOW; URINE GLUCOSE (UA) NEGATIVE (NEGATIVE); URINE KETONE NEGATIVE (NEGATIVE); URINE LEUK ESTERASE NEGATIVE (NEGATIVE); URINE NITRITE NEGATIVE (NEGATIVE); URINE PROTEIN NEGATIVE (NEGATIVE); URINE UROBILINOGEN 0.2 mg/dL (0.2-1.0)
[2024-04-21 23:44] LABS: HIV INTERPRETATION NEGATIVE (NEGATIVE)
[2024-04-22 00:43] LABS: LACTIC ACID 3.2 mmol/L (0.4-2.0)
[2024-04-22] MEDS: SODIUM CHLORIDE 1,000 ML IV SCH ×2 (02:17→15:00)
[2024-04-22 02:44] LABS: INR 1.04 (0.83-1.09); PROTHROMBIN TIME (PATIENT) 11.9 SEC (9.7-13.0)
[2024-04-22 02:46] LABS: ACTIVATED PTT 31.8 SECONDS (25.2-36.5)
[2024-04-22] MEDS: ACETAMINOPHEN 1000 MG/100 ML BAG IVPB ONE (03:10)
[2024-04-22 05:58] VITALS: BMI 21.9
[2024-04-22] MEDS ORDERED: BUPIVACAINE HCL/PF 0.5% (5MG/ML) 10 ML VIAL ONE (08:36)
[2024-04-22] MEDS ORDERED: CHOLECALCIFEROL (VIT D3) 1,000 UNIT (25 MCG) TABLET PO SCH (10:00)
[2024-04-22] MEDS ORDERED: FOLIC ACID 1 MG TABLET (FP) PO SCH (10:00)
[2024-04-22] MEDS ORDERED: POLYETHYLENE GLYCOL (HEALTHYLAX) 3350 17 GM PACKET PO SCH (10:00)
[2024-04-22] MEDS ORDERED: LOSARTAN POTASSIUM 50 MG TABLET PO SCH (10:00)
[2024-04-22] MEDS ORDERED: CARVEDILOL 6.25 MG TABLET (FP) PO SCH (10:00)
[2024-04-22] MEDS ORDERED: PROPOFOL 20 ML ONE (10:09)
[2024-04-22] MEDS ORDERED: LIDOCAINE HCL/PF 2% SDV 5ML VIAL ONE (10:09)
[2024-04-22] MEDS ORDERED: ONDANSETRON 4 MG/2 ML VIAL ONE ×2 (10:09→12:33)
[2024-04-22] MEDS ORDERED: DEXAMETHASONE SOD PHOSPHATE 4 MG/1 ML VIAL ONE (10:09)
[2024-04-22] MEDS ORDERED: ONDANSETRON 4 MG/2 ML VIAL IVPUSH PRN (10:17)
[2024-04-22] MEDS ORDERED: oxyCODONE HCL 5 MG TABLET PO PRN ×4 (10:17→12:06)
[2024-04-22] MEDS ORDERED: ACETAMINOPHEN 1000 MG/100 ML BAG IVPB PRN (10:19)
[2024-04-22] MEDS: ceFAZolin SODIUM 1 GM VIAL IVPB ONE (10:22)
[2024-04-22] MEDS ORDERED: ceFAZolin SODIUM 1 GM VIAL ONE (10:30)
[2024-04-22] MEDS ORDERED: SEVOFLURANE 250 ML BTL ONE (10:33)
[2024-04-22] MEDS ORDERED: KETOROLAC TROMETHAMINE 30 MG/1 ML VIAL ONE (11:35)
[2024-04-22] MEDS: BUPIVACAINE HCL/PF 0.5% (5MG/ML) 10 ML VIAL IJ ONE (11:38)
[2024-04-22] MEDS: LACTATED RINGERS SOLUTION 1,000 ML IV SCH (12:07)
[2024-04-22] MEDS: ACETAMINOPHEN 1000 MG/100 ML BAG IVPB PRN (12:19)
[2024-04-22] MEDS: ONDANSETRON 4 MG/2 ML VIAL IVPUSH PRN (12:39)
[2024-04-22 17:49] LABS: HEMATOCRIT 38.4 % (32.4-45.2); HEMOGLOBIN 12.6 GM/dL (10.7-15.3); MCHC 32.7 g/dl (32.0-36.0); MEAN CELL VOLUME 91.6 fl (80-96); MEAN PLT VOLUME 9.3 fl (7.5-11.1); PLATELET COUNT 154 10^3/uL (134-434); RDW 14.5 % (11.6-15.6); WHITE BLOOD COUNT 11.5 K/mm3 (4.0-10.0)
[2024-04-22 18:05] LABS: INR 1.11 (0.83-1.09); PROTHROMBIN TIME (PATIENT) 12.5 SEC (9.7-13.0)
[2024-04-22 18:21] LABS: POTASSIUM 3.8 mmol/L (3.5-5.1)
[2024-04-22 18:23] LABS: ALBUMIN 3.4 g/dl (3.4-5.0); BLOOD UREA NITROGEN 12.2 mg/dL (7-18); CALCIUM 8.3 mg/dL (8.5-10.1); MAGNESIUM 1.1 mg/dL (1.8-2.4)
[2024-04-22 18:27] LABS: CREATININE 0.8 mg/dL (0.55-1.3)
[2024-04-22 18:28] LABS: BILIRUBIN,TOTAL 0.6 mg/dL (0.2-1); TOT PROT 6.5 g/dl (6.4-8.2)
[2024-04-22 19:32] LABS: ANISOCYTOSIS 0; MACROCYTOSIS 0
[2024-04-22] MEDS: CARVEDILOL 6.25 MG TABLET (FP) PO SCH (21:16)
[2024-04-22] MEDS: DOCUSATE SODIUM 100 MG CAPSULE (FP) PO SCH (21:16)
[2024-04-22] MEDS: ATORVASTATIN CA 10 MG TABLET (FP) PO SCH (21:16)
[2024-04-22] MEDS: INSULIN ASPART SLIDING SCALE (NOVOLOG) 1 VIAL SQ SCH (21:49)
[2024-04-22] MEDS ORDERED: ATORVASTATIN CA 10 MG TABLET (FP) PO SCH (22:00)
[2024-04-22] MEDS ORDERED: PANTOPRAZOLE 40 MG TABLET PO SCH (22:00)
[2024-04-22 23:27] VITALS: RESP 18
[2024-04-23 03:30] VITALS: TEMP 97.9
[2024-04-23] MEDS ORDERED: MAGNESIUM OXIDE 400 MG TABLET (FP) PO SCH (08:03)
[2024-04-23] MEDS ORDERED: MAGNESIUM 2GM/50ML STERILE WATER IVPB IVPB ONE (08:04)
[2024-04-23] MEDS: LOSARTAN POTASSIUM 50 MG TABLET PO SCH (09:50)
[2024-04-23] MEDS: POLYETHYLENE GLYCOL (HEALTHYLAX) 3350 17 GM PACKET PO SCH (10:07)
[2024-04-23 10:09] VITALS: BP 121/54; PULSE 71
[2024-04-23] MEDS: MAGNESIUM 2GM/50ML STERILE WATER IVPB IVPB ONE (10:19)
== END 2024-04-23 14:18 | disposition home or self-care (01) ==
LOC: JER 20:17 → UNDOADMIN 04-22 01:51 → JERBED 04-22 01:51 → J6S 04-22 04:23 → JASUSAT 04-22 04:23 → JERBED 04-23 10:21 → J6S 04-23 10:21 → JASUSAT 04-23 14:18
PROVIDERS: ATTEND Internal Medicine
PROC: 0YU60JZ Supplement Left Inguinal Region with Synthetic Substitute, Open Approach (ICD-10-PCS; 2024-04-22)
PROC: 0YU80JZ Supplement Left Femoral Region with Synthetic Substitute, Open Approach (ICD-10-PCS; principal; 2024-04-22 08:48)
DX: K41.30 Unilateral femoral hernia, with obstruction, without gangrene, not specified as recurrent (principal); K40.90 Unilateral inguinal hernia, without obstruction or gangrene, not specified as recurrent; I25.10 Atherosclerotic heart disease of native coronary artery without angina pectoris; E11.9 Type 2 diabetes mellitus without complications
CPT/HCPCS: 36415; 71045-TC-FY; 74177-TC; 80048; 80053; 81003; 82962; 83605; 83735; 85025; 85610; 85730; 86803; 86850; 86900; 86901; 87389; 94760; 97116-GP; 97162-GP; 99285-25; C1781; J0131; Q9967

== ENCOUNTER 2025-02-03 07:41 | Observation (INO) | payer BC ==
[2025-02-03] MEDS ORDERED: VANCOMYCIN 1 GM PREMIX (F) 1 GM/200 ML BAG ONE (09:11)
[2025-02-03 09:14] LABS: ABSOLUTE IMMATURE GRANULOCYTES 0.02 x10^3/uL (0.0-0.031); BASOPHILS # 0.03 x10^3/uL (0.01-0.08); EOSINOPHIL % 2.3 % (0.7-5.8); EOSINOPHILS # 0.14 x10^3/uL (0.04-0.36); MCHC 32.4 g/dl (32.2-35.5); MEAN CELL VOLUME 90.4 fl (79.4-94.8); MEAN PLT VOLUME 11.7 fl (9.4-12.3); MONOCYTE # 0.61 x10^3/uL (0.24-0.86); MONOCYTE % 10.1 % (4.7-12.5); RDW 13.5 % (12.5-17.0)
[2025-02-03] MEDS: VANCOMYCIN 1,000 MG in DEXTROSE 5%-WATER - 250 ML IVPB ONE (09:16)
[2025-02-03 09:23] LABS: INR 1.11 (0.83-1.09); PROTHROMBIN TIME (PATIENT) 12.1 SEC (9.7-13.0)
[2025-02-03 09:26] LABS: ACTIVATED PTT 28.7 SECONDS (25.2-36.5)
[2025-02-03 09:49] LABS: GLUCOSE,RANDOM 197.0 mg/dL (74-106)
[2025-02-03 09:50] LABS: TOT PROT 6.4 g/dl (6.4-8.2)
[2025-02-03 09:51] LABS: CO2 27.0 mmol/L (21-32)
[2025-02-03 09:52] LABS: ALK PHOS 51.0 U/L (40-150)
[2025-02-03 09:55] LABS: CREATININE 0.78 mg/dL (0.55-1.3); SGOT/AST 20.0 U/L (5-34); SGPT/ALT 6.0 U/L (0-55)
[2025-02-03] MEDS ORDERED: ACETAMINOPHEN 325 MG TABLET (FP) PO PRN (11:00)
[2025-02-03] MEDS ORDERED: diphenhydrAMINE HCL 25 MG CAPSULE (FP) PO PRN (11:43)
[2025-02-03 11:54] VITALS: RESP 18
[2025-02-03] MEDS: INSULIN ASPART SLIDING SCALE (NOVOLOG) 1 VIAL SQ SCH (12:02)
[2025-02-03] MEDS ORDERED: INSULIN ASPART SLIDING SCALE (NOVOLOG) 1 VIAL SQ ONE (12:06)
[2025-02-03] MEDS ORDERED: CARVEDILOL 6.25 MG TABLET (FP) ONE (12:17)
[2025-02-03] MEDS ORDERED: LORATADINE 10 MG TABLET ONE ×2 (12:17→12:24)
[2025-02-03] MEDS ORDERED: CLOPIDOGREL BISULFATE 75 MG TABLET (FP) ONE (12:17)
[2025-02-03] MEDS ORDERED: ATORVASTATIN CA 10 MG TABLET (FP) ONE (12:17)
[2025-02-03] MEDS: LORATADINE 10 MG TABLET PO SCH (12:25)
[2025-02-03] MEDS: CARVEDILOL 6.25 MG TABLET (FP) PO SCH (12:25)
[2025-02-03] MEDS: CLOPIDOGREL BISULFATE 75 MG TABLET (FP) PO SCH (12:25)
[2025-02-03] MEDS: ATORVASTATIN CA 10 MG TABLET (FP) PO SCH (12:25)
[2025-02-03 13:45] VITALS: BMI 20.6
[2025-02-03] MEDS: CLINDAMYCIN 300 MG PREMIX IVPB 300 MG/50 ML BAG IVPB SCH (15:23)
[2025-02-03] MEDS: MINERAL OIL/PET HY-PHL TOPICAL OINTMENT 454 GM JAR TP PRN (16:02)
[2025-02-04 08:18] LABS: GLUCOSE,RANDOM 97.0 mg/dL (74-106)
[2025-02-04 08:20] LABS: CO2 27.0 mmol/L (21-32)
[2025-02-04 08:24] LABS: CREATININE 0.81 mg/dL (0.55-1.3)
[2025-02-04 08:25] LABS: MCHC 32.7 g/dl (32.2-35.5); MEAN CELL VOLUME 90.0 fl (79.4-94.8); MEAN PLT VOLUME 11.7 fl (9.4-12.3); RDW 13.5 % (12.5-17.0)
[2025-02-04] MEDS: LOSARTAN POTASSIUM 50 MG TABLET PO SCH (09:09)
[2025-02-04] MEDS: diphenhydrAMINE HCL 25 MG CAPSULE (FP) PO SCH (09:09)
[2025-02-04] MEDS: ENOXAPARIN NA (PORCINE) 40 MG/0.4 ML DISP.SYRIN SQ SCH (09:09)
[2025-02-04] MEDS: CEFAZOLIN SODIUM 2 GM in DEXTROSE 5%-WATER 100 ML IVPB SCH (10:37)
[2025-02-04 15:05] VITALS: BP 171/65; PULSE 68; TEMP 98.1
== END 2025-02-04 17:20 | disposition home or self-care (01) ==
LOC: JER 07:41 → JERBED 10:37 → J6S 13:21
PROVIDERS: ADMIT Student in an Organized Health Care Education/Training Program; ATTEND Internal Medicine
PROC: 3E03329 Introduction of Other Anti-infective into Peripheral Vein, Percutaneous Approach (ICD-10-PCS; principal; 2025-02-03)
PROC: 3E033GC Introduction of Other Therapeutic Substance into Peripheral Vein, Percutaneous Approach (ICD-10-PCS; 2025-02-03)
PROC: 3E023GC Introduction of Other Therapeutic Substance into Muscle, Percutaneous Approach (ICD-10-PCS; 2025-02-03)
DX: L03.211 Cellulitis of face (principal); I25.10 Atherosclerotic heart disease of native coronary artery without angina pectoris; E11.9 Type 2 diabetes mellitus without complications; K57.90 Diverticulosis of intestine, part unspecified, without perforation or abscess without bleeding
CPT/HCPCS: 36415; 80048; 80053; 82962; 83735; 84100; 85025; 85027; 85610; 85730; 86850; 86900; 86901; 93005; 93010; 96365; 96367; 96372; 96375; 99285-25; G0378